=== PATIENT | male | born 1980 | race Hispanic/Latino ===

== ENCOUNTER 2019-12-27 03:41 | Emergency (ER) | payer SELFPAY ==
[2019-12-27 03:51] VITALS: BP 157/93; PULSE 74; RESP 16; TEMP 36.8; O2SAT 100
--- NOTE | 2019-12-27 03:59 | ED.DENTAL ---
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 He states he has been unable to sleep for 2 days due to severe pain. He has been taking tylenol with minimal relief . He reports there is swelling and he told nurse he had subjective fever. He denies purulent discharge. He reports he is unable to eat due to pain with chewing. Complaint: tooth pain Related Data Allergies Allergy/AdvReac Type Severity Reaction Status Date / Time No Known Allergies Allergy Verified 12/27/19 04:01 Review of Systems Review of Systems: All systems reviewed & are unremarkable except as noted in HPI and below Constitutional: Constitutional: Denies chills and Denies fever(s) Respiratory: Respiratory: Reports dyspnea Gastrointestinal: Gastrointestinal: Reports nausea and Denies vomiting [facility] Past Medical History Medical History (Updated 12/27/19 @ 05:04 by Lita Randhawa MD) Patient denies medical problems Surgical History Surgical History (Updated 12/27/19 @ 04:00 by Lita Randhawa MD) H/O hernia repair Social History Social History (Updated 12/27/19 @ 04:00 by Lita Randhawa MD) Smoking status: Never smoker Alcohol intake: current Alcohol use details: occasional Substance use: never Exam Const: General: alert Orientation/consciousness: patient oriented x3 Other: mild distress HENMT: Ears: TM's normal bilaterally Face and sinus: face symmetric Mouth: Yes lip normal, Yes tongue normal, Yes oropharynx normal, Yes moist mucous membranes, Yes malodorous breath, No trismus and No restricted motion Teeth and gingiva: abnormal tooth and associated gingiva (#18 broken off dental deepa, no gum swelling or abscess) Throat: posterior oropharynx normal, tonsils normal and uvula midline Other: there is left submental lypmhnode Eyes: Pupils: Equal, round and reactive pupils present EOM: EOMs intact bilaterally Chest: Chest palpation & inspection: normal inspection of the chest Resp: Effort & Inspection: normal respiratory effort and no retractions Auscultation: not clear to auscultation bilaterally Cardio: Rate: regular rate Rhythm: regular rhythm Heart sounds: no murmurs GI: GI Palp: Yes Soft to palpation, No Tenderness to palpation present (GI), No Guarding due to palpation present (GI) and No Rigid due to palpation Skin: General skin exam: normal color Rashes: no rashes Neuro: General: patient oriented x3, moves all extremities and CN's II-XI intact bilaterally Course Reevaluation(s) Reevaluation #1: Patient reports he no longer has pain. He will be discharged with antibiotics for dental abscess Date: 12/27/19 Time: 05:02 Vital Signs Vital signs: Vital Signs Temperature 98.2 F 12/27/19 03:51 Pulse Rate 74 12/27/19 03:51 Respiratory Rate 16 12/27/19 03:51 Blood Pressure 157/93 H 12/27/19 03:51 Pulse Oximetry 100 12/27/19 03:51 Temperature 98.2 F 12/27/19 03:51 Pulse Rate 65 12/27/19 05:20 Respiratory Rate 16 12/27/19 05:20 Blood Pressure 114/84 12/27/19 05:20 Pulse Oximetry 98 12/27/19 05:20 Discharge Plan Discharge Clinical Impression: Dental abscess Patient Disposition: Home, Self-Care Condition: Stable Instructions: Antibiotic Form, Dental Abscess (ED) Additional Instructions: Today you were started on antibiotics for a dental abscess. Call Dr. Ramin Allred for further treatment . Do not take any more tylenol. Patient Language: Nepali Prescriptions: New clindamycin HCl 150 mg capsule 450 mg PO Q8H 10 Days Qty: 90 RF: 0 ibuprofen 600 mg tablet 600 mg PO Q6H PRN (Reason: p
[2019-12-27] MEDS: ONDANSETRON INJ 4 MG/2 ML VIAL IV PUSH (04:12)
[2019-12-27] MEDS: KETOROLAC 30 MG/ML VIAL (*BKC) IV PUSH (04:12)
[2019-12-27] MEDS: CLINDAMYCIN 900 MG/NS 50 ML 900 MG/50 ML PIGGYBACK 50 MG IVPB (04:17)
[2019-12-27 05:20] VITALS: BP 114/84; PULSE 65; RESP 16; O2SAT 98
== END 2019-12-27 05:22 | disposition home or self-care (01) ==
PROVIDERS: Emergency Provider General Practice
DX: K04.7 Periapical abscess without sinus (principal)
CPT/HCPCS: 96365; 96375; 99284; J1885; J2405

== ENCOUNTER 2021-02-14 23:31 | Emergency (ER) | payer SELFPAY ==
--- NOTE | ~2021-02-14 | XR_ITS ---
EXAMINATION: XR chest 2V DATE: 02/15/2021 04:44 INDICATION: Weakness, nausea, vomiting and diarrhea TECHNIQUE: frontal and lateral views of the chest were obtained. COMPARISON: None FINDINGS: The lungs are clear with no focal airspace opacities, pulmonary edema, pleural effusion or pneumothor ax. The cardiomediastinal silhouette is normal. Cholecystectomy clips in the right upper quadrant. IMPRESSION: 1. No acute cardiopulmonary disease. Reviewed, dictated and finalized at location A. [facility]
[2021-02-14 23:40] VITALS: BP 165/105; PULSE 72; RESP 20; TEMP 37.3; O2SAT 100
--- NOTE | 2021-02-15 03:22 | ECG_ITS ---
Measurements Intervals [place] Rate: 64 P: 15 MD: 164 QRS: 19 QRSD: 95 T: 15 QT: 387 QTc: 401 Interpretive Statements SINUS RHYTHM NORMAL ECG Electronically Signed On 02-15-2021 7:08:57 [facility] by Cal Spring D.O.
[2021-02-15 03:37] VITALS: PULSE 60; RESP 18; O2SAT 99
--- NOTE | 2021-02-15 03:37 | ED.NAVMDI ---
HPI - Nausea/Vomiting/Diarrhea General Chief complaint: Nausea/Vomiting/Diarrhea Stated complaint: CHILLS, BODY ACHES Time Seen by Provider: 02/15/21 03:16 Source: patient History of Present Illness HPI Narrative: Patient presents with nausea vomiting diarrhea. Ports symptoms started today and got progressively worse symptoms were improving so he came to the ER for evaluation. Reports left-sided chest and arm pain. Pain is achy, constant, no clear aggravating or alleviating factors. Reports subjective fevers and chills at home he denies any known sick contacts denies any recent antibiotics. Denies any recent camping trips. Related Data Allergies Allergy/AdvReac Type Severity Reaction Status Date / Time No Known Allergies Allergy Verified 02/15/21 03:55 Review of Systems Review of Systems: CONSTITUTIONAL: Denies fever, chills, or sweats. EYES: Denies visual changes, redness, or discharge. ENT: Denies rhinorrhea, congestion, sore throat, or otalgia. CARDIOVASCULAR: Denies palpitations, or edema. RESPIRATORY: Denies cough or dyspnea. GASTROINTESTINAL: Reports nausea vomiting and diarrhea GENITOURINARY: Denies dysuria or hematuria. SKIN: Denies rash or itching. MUSCULOSKELETAL: Denies back pain, joint pain, or myalgia. NEUROLOGIC: Denies headache, numbness, dizziness, or weakness. PSYCHIATRIC: Denies anxiety or depression. All systems reviewed & are unremarkable except as noted in HPI and below PMFSH Past Medical History Medical History Patient denies medical problems Surgical History Surgical History H/O hernia repair Social History Social History Smoking status: Never smoker Alcohol intake: current Alcohol use details: occasional Substance use: never Exam Narrative: GENERAL: Well-appearing, well-nourished, and in no acute distress. HEAD: Normocephalic, atraumatic. EYES: PERRLA and EOMI. ENT: Nares clear, no rhinorrhea or epistaxis. Mucous membranes moist. NECK: Supple. No masses. No JVD CHEST: Clear to auscultation. No respiratory distress. No wheezes rales or rhonchi HEART: Regular rate and rhythm. No murmur heard. Normal peripheral pulses. ABDOMEN: Soft, nontender, nondistended, normal active bowel sounds. EXTREMITIES: Normal range of motion. No edema. SKIN: Warm, dry, no rash. NEURO: No focal deficits. Alert and oriented x3. PSYCH: Normal mood and affect. Course Reevaluation(s) Reevaluation #1: Patient reports feeling much improved he reports his symptoms have nearly completely resolved. Results and plan reviewed with patient. Patient comfortable outpatient plan. Date: 02/15/21 Time: 05:43 Vital Signs Vital signs: Vital Signs Temperature 37.3 C 02/14/21 23:40 Pulse Rate 72 02/14/21 23:40 Respiratory Rate 20 02/14/21 23:40 Blood Pressure 165/105 H 02/14/21 23:40 Pulse Oximetry 100 02/14/21 23:40 Temperature 36.7 C 02/15/21 06:10 Pulse Rate 66 02/15/21 06:10 Respiratory Rate 18 02/15/21 06:10 Blood Pressure 134/81 02/15/21 06:10 Pulse Oximetry 96 02/15/21 06:10 MDM - Nausea/Vomiting/Diarrhea MDM Narrative Medical decision making narrative: H&P as above, vss, pt looks clinically well, exam with nonacute abdomen, labs clinically unremarkable, img clinically unremarkable, additional labs/img considered, symptomatic relief available as needed, on reevaluation pt continues to looks clinically well. Suspect viral process, dns severe sepsis, ACS, appendicitis, cholecystitis, pancreatitis, bowel obstruction. plan to tx/monitor as op w/ pcm f/u findings/plan discussed with pt, pt agree/comfortable with plan, return precautions given Lab Data Result diagrams: 02/15/21 03:49 02/15/21 03:49 Labs: Lab Results 02/15/21 02/15/21 02/15/21 Range/Units 03:48 03:49 03:49 WBC
[2021-02-15] MEDS: SODIUM CHLORIDE 0.9% IV 1,000 ML 999 ML IV CONT (03:50)
[2021-02-15] MEDS: ONDANSETRON INJ 4 MG/2 ML VIAL IV PUSH (03:51)
[2021-02-15 03:58] LABS: Basophils Absolute Auto 0.1 K/mm3 (0.0-0.1); Basophils Percent Auto 0.6 % (0.2-1.2); Eosinophils Absolute Auto 0.1 K/mm3 (0-0.3); Eosinophils Percent Auto 1.4 % (0-4.4); Hematocrit 47.2 % (42.0-52.0); Hemoglobin 16.3 g/dL (14.0-18.0); Immature Granulocyte Absolute 0.05 K/mm3 (0.00-0.031); Immature Granulocyte Percent A 0.6 % (0-0.5); Lymphocytes Absolute Auto 3.68 K/mm3 (0.9-3.2); Lymphocytes Percent Auto 41.4 % (18.3-44.2); Mean Corpuscular HGB Conc 34.5 g/dl (32-36); Mean Corpuscular Hemoglobin 32.3 pg (26-34); Mean Corpuscular Volume 93.5 fl (80-100); Monocytes Absolute Auto 0.8 K/mm3 (0.1-0.6); Monocytes Percent Auto 8.9 % (2.6-8.5); Neutrophils Absolute Auto 4.2 K/mm3 (1.3-6.7); Neutrophils Percent Auto 47.1 % (45.5-73.1); Platelet Count Result 198 k/mm3 (150-375); Red Blood Count 5.05 M/mm3 (4.6-6.20); Red Cell Distribution Width 13.2 % (11.5-14.5); White Blood Count 8.9 K/mm3 (4.5-10.0)
[2021-02-15 04:09] LABS: Add Urine Microscopic? NO; Appearance Urine Clear (Clear); Bilirubin Urine Negative (Negative); Blood Urine Negative (Negative); Color Urine Yellow (Yellow); Glucose Urine UA Negative (Negative); Ketones Urine Negative (Negative); Leukocyte Esterase Ur Negative LEU/UL (Negative); Nitrate Urine Negative (Negative); Protein Urine Negative (Negative); Specific Grav Ur 1.012 (1.001-1.035); Urobilinogen Urine Negative mg/dL (<2.0)
[2021-02-15 04:15] LABS: Alanine Aminotransferase 164 U/L (4-50); Albumin Level 4.7 g/dL (3.5-5.1); Alkaline Phosphatase 79 U/L (38-126); Anion Gap 10 mmol/L (8-16); Aspartate Amino Transferase 53 U/L (17-59); Blood Urea Nitrogen 11 mg/dL (9-20); Calcium 9.3 mg/dL (8.4-10.2); Carbon Dioxide 27 mmol/L (22-30); Chloride 101 mmol/L (98-107); Estimated CRCL calculation 142 ml/min; Estimated Glomerular Filt Rate > 60; Glucose 121 mg/dL (65-110); Lipase 48 U/L (23-300); Potassium 3.9 mmol/L (3.4-5.0); Sodium 138 mmol/L (137-145)
[2021-02-15 05:22] LABS: Troponin I < 0.012 ng/mL (0.000-0.034)
[2021-02-15 06:10] VITALS: BP 134/81; PULSE 66; RESP 18; TEMP 36.7; O2SAT 96
== END 2021-02-15 06:11 | disposition home or self-care (01) ==
PROVIDERS: Emergency Provider Emergency Medicine
DX: R11.2 Nausea with vomiting, unspecified (principal); R19.7 Diarrhea, unspecified; R07.9 Chest pain, unspecified
CPT/HCPCS: 36415; 71046; 80053; 81003; 83690; 84484; 85025; 93005; 96361; 96374; 99284; J2405; J7030